=== PATIENT | female | born 1980 | race Caucasian/White ===

== ENCOUNTER 2020-10-19 01:50 | Outpatient (CLI) | payer OTHER, SELFPAY ==
--- NOTE | 2020-10-19 12:20 | DI.RAD_ITS ---
Exam(s) XR KNEE RT 2V AP,LAT EXAM: XR KNEE RT 2V AP,LAT CLINICAL HISTORY: DISABILITY DETERMINATION,KNEE PAIN,Z02.71. TECHNIQUE: 2D digital imaging was performed. COMPARISON: No exams were available for comparison FINDINGS: BONES: No acute fracture is present. No bony destructive lesion is seen. JOINTS: Mild medial femoral tibial joint space narrowing. Spurring at the medial femoral condyle. S purring at the articular aspect of the patella. No joint effusion is seen. SOFT TISSUE: Normal. IMPRESSION: Obtw-[id number] degenerative changes. DATA REPOSITORY: RADIATION DOSE DELIVERED:
== END 2020-10-19 02:10 ==
PROVIDERS: Visit Provider Pediatrics Pediatric Rheumatology
DX: M25.561 Pain in right knee (principal)
CPT/HCPCS: 73560